=== PATIENT | female | born 1955 | race Caucasian/White ===

== ENCOUNTER 2019-04-01 10:23 | Observation (INO) ==
[2019-03-21 12:02] LABS: Basophils # (auto) 0.05 K/uL (0-0.2); Basophils % (auto) 0.5 %; Eosinophils # (auto) 0.05 K/uL (0-0.5); Eosinophils % (auto) 0.5 %; Hemoglobin 16.6 g/dL (12.0-16.0); Immature Granulocytes # (auto) 0.03 K/uL (0.00-0.02); Immature Granulocytes % (auto) 0.3 %; Lymphocytes # (auto) 2.74 K/uL (1.2-3.4); Lymphocytes % (auto) 28.9 %; Mean Corpuscular Hemoglobin 30.7 pg (25-34); Mean Corpuscular Hgb Conc 33.9 g/dL (32-36); Mean Corpuscular Volume 90.7 fL (80-100); Mean Platelet Volume 10.7 fL (7.4-10.4); Monocytes # (auto) 0.57 K/uL (0.11-0.59); Neutrophils # (auto) 6.04 K/uL (1.4-6.5); Neutrophils % (auto) 63.8 %; Platelet Count 301 K/uL (130-400); RDW Coefficient of Variation 14.5 % (11.5-14.5); RDW Standard Deviation 48.5 fL (36.4-46.3); White Blood Count 9.48 K/uL (4.8-10.8)
[2019-03-21 12:15] LABS: Appearance Urine Clear (Clear); Bacteria Urine Automated 2+ (Negative); Bilirubin Urine Negative (Negative); Blood Urine Trace (Negative); Color Urine Yellow; Epithelial Cell Urine Auto >30 /lpf (0-5); Glucose Urine UA Negative (Negative); Ketones Urine Negative (Negative); Leukocyte Esterase Urine 2+ (Negative); Nitrite Urine Negative (Negative); Protein Urine Negative (Negative); Specific Gravity Urine 1.019 (1.000-1.030); Urobilinogen Urine Negative (Negative); pH Urine 6.5 (4.5-7.5)
[2019-03-21 13:05] LABS: RBC Urine Automated 0-4 /hpf (0-4)
--- NOTE | 2019-03-24 14:20 | Anesthesiology Consultation ---
Date of Service March 24, 2019 Assessment & Plan (1) Encounter for pre-operative examination: Chart Review Chart Review: Acceptable Risk for Surgery and Patient NOT seen in Pre Admission Testing History Surgery Operation Date: 04/01/19 09:30 Proposed Procedures p Right Foot Triple Ankle Arthrodesis, - Crow Alonso DO s Percutaneous Tendon Achilles Lengthening, Repair Peroneus Brevis Tendon, Application of Platelet Rich Plasma - Crow Alonso DO Height/Weight Height: 5 ft Weight: 77.111 kg Allergies Allergy/AdvReac Type Severity Reaction Status Date / Time No Known Allergies Allergy Unverified 03/24/19 11:19 Medications Home Medications Medication Instructions Recorded Confirmed Last Taken No Known Home Medications 11/11/18 03/24/19 Unknown Past Medical History Medical History Obesity Pes planus Past Family History Family History Brother Family history of diabetes mellitus Mother Family history of diabetes mellitus Other No family history of adverse response to anesthesia Past Surgical History Surgical History History of colonoscopy History of tooth extraction Social History Smoking Status: Current every day smoker tobacco type: cigarettes Smoking cigarettes per day: 1-2 CIG PER DAY Do You Dip or Chew Tobacco: No Hx Alcohol Use: No Hx Substance Use: No substance use type: does not use Testing Laboratory Results 03/21/19 09:58 Urine Color Yellow 03/21/19 09:58 Urine Appearance Clear (Clear) 03/21/19 09:58 Urine pH 6.5 (4.5-7.5) 03/21/19 09:58 Ur Specific [place] 1.019 (1.000-1.030) 03/21/19 09:58 Urine Protein Negative (Negative) 03/21/19 09:58 Urine Glucose (UA) Negative (Negative) 03/21/19 09:58 Urine Ketones Negative (Negative) 03/21/19 09:58 Urine Nitrite Negative (Negative) 03/21/19 09:58 Ur Leukocyte Esterase 2+ (Negative) H 03/21/19 09:58 Urine WBC (Auto) 1-5 /hpf (0-5) 03/21/19 09:58 Urine RBC (Auto) 0-4 /hpf (0-4) 03/21/19 09:58 U Hyaline Cast (Auto) 1-5 /lpf (0-5) 03/21/19 09:58 U Epithel Cells (Auto) >30 /lpf (0-5) H 03/21/19 09:58 Urine Bacteria (Auto) 2+ (Negative) H 03/21/19 09:58 *Surgeon office made aware of abnormal UA* Electrocardiogram Date: 03/21/19 SR with PAC's at 70bpm. LAD. Chest X-Ray Date: 03/21/19 There is mild bibasilar atelectasis. The lungs and pleural spaces are otherwise clear. There is no pneumothorax. The skeletal structures are osteopenic. The bony thorax appears intact. Degenerative change and scoliosis are noted in the thoracic spine. IMPRESSION: No active disease in the chest.
--- NOTE | 2019-03-30 18:38 | History & Physical Report ---
Date of Service March 30, 2019 Assessment & Plan (1) Rupture of right posterior tibialis tendon: Schedule a right foot triple arthrodesis, percutaneous tendoachilles lengthening, repair peroneus brevis tendon tear, application PRP for 04.01.2019. All potential risks, benefits, complications, alternatives, and rehab have been discussed with the patient and she wishes to proceed. Plan for ASA 81 mg BID x 6 wks for DVT prophylaxis. (2) Osteoarthritis of right foot: (3) Achilles tendon contracture, right: (4) Tear of peroneal tendon: History of Present Illness Chief Complaint: right ankle pain Primary Care Provider: Jeremias Acharya MD This is a patient who rolled her right ankle in November of 2018. She had persistent medial ankle pain and worsening flat foot deformity. She was seen in the [facility] office and an MRI was ordered. She was noted to have a PTT rupture, hindfoot DJD, and a peroneal tendon tear. She is now being set up for surgical management. Allergies Allergy/AdvReac Type Severity Reaction Status Date / Time No Known Allergies Allergy Unverified 03/24/19 11:19 Home Medications Home Medications Medication Instructions Recorded Confirmed Type No Known Home Medications 11/11/18 03/24/19 History Past Med/Surg History Medical History Obesity Pes planus Surgical History History of colonoscopy History of tooth extraction Family History Brother Family history of diabetes mellitus Mother Family history of diabetes mellitus Other No family history of adverse response to anesthesia Social History Preferred Language: Maori Communication Ability: Effective Stick Welder Required: No Beliefs That Will Affect Care: None marital status: Current Living Situation: Family Feels Safe at Home: Yes Smoking Status: Current every day smoker Tobacco Type: cigarettes ; Cigarettes Per Day: 1-2 CIG PER DAY ; Second Hand Exposure: No ; Hx Alcohol Use: No Hx Substance Use: No Physical Exam Constitutional: well developed and well nourished; no acute distress ENMT: external ear and nose normal, oropharynx normal Neck: trachea midline, no thyromegaly Respiratory: normal respiratory effort, lungs clear to auscultation Cardiovascular: Rate/Rhythm: regular rate and regular rhythm Gastrointestinal (Abdomen): normal bowel sounds, soft, nontender, no hepatosplenomegaly Musculoskeletal: Gait: + antalgic gait (right) Shoulder: + joint line tenderness (Right posterior tibialis tendon, sinus tarsi, peroneal tendons) Ankle: + ankle abnormal to inspection (right pes planus), + limited ROM of ankle (right dorsiflexion and active inversion) and + joint line tenderness (Right posterior tibialis tendon, sinus tarsi, peroneal tendons); no skin erythema and no ecchymosis Skin: no rashes, warm and dry Neurologic: normal touch/pain/proprioception Psychiatric: A+Ox3, euthymic affect Lymphatic: no cervical or axillary lymphadenopathy
[~2019-04-01 10:23] MED LIST: BUPIVACAINE 0.5 % 5 MG/1 ML PF 10ML VIAL ONE; CEFAZOLIN 1000MG 1,000 MG/7.5 ML SYR IV SCH; CEFAZOLIN 2000MG 2,000 MG/15 ML SYR IV SCH; EPINEPHrine INJ 1 MG/ML AMP ONE; LIDOCAINE HCL 2% 2 ML VIAL/AMP(20MG/ML) INFIL ONE; LR 15ML/HR IV SCH; MIDAZOLAM HCL 1 MG/ML 2ML VIAL ONE; PROPOFOL IV EMULSION 10 MG/ML 20 ML VIAL IV ONE; ROPIVACAINE 0.5% 5 MG/ML 30 ML VIAL ONE; fentaNYL citrate 100 MCG/2 ML VIAL ONE
--- NOTE | 2019-04-01 10:56 | History & Physical Bridge Note ---
Date of Service April 01, 2019 History & Physical Bridge Note I have examined the patient, reviewed the History & Physical and in the interval since the performance of the History & Physical I have noted the following changes of clinical significance: no changes noted
[2019-04-01] MEDS ORDERED: BACITRACIN INJ 50,000 UNIT VIAL ONE (11:09)
[2019-04-01] MEDS ORDERED: ONDANSETRON INJ 2 MG/ML 2 ML VIAL IV PRN ×3 (11:16→17:23)
[2019-04-01] MEDS ORDERED: ATROPINE SULFATE 0.1 MG/ML 10ML SYR IV PRN ×2 (11:16→11:29)
[2019-04-01] MEDS ORDERED: fentaNYL citrate 100 MCG/2 ML VIAL IV PRN ×2 (11:16→11:29)
[2019-04-01] MEDS ORDERED: ePHEDrine sulfate 50 MG/ML AMP IV PRN ×2 (11:16→11:29)
[2019-04-01] MEDS ORDERED: HYDROmorphone INJ 1 MG/ML SYRINGE IV PRN ×2 (11:16→11:29)
[2019-04-01] MEDS ORDERED: CIPROFLOXACIN 400 MG/200 ML BAG IV STA (11:26)
[2019-04-01] MEDS ORDERED: ALBUT/IPRATROP 3MG/0.5MG NEB 3 ML VIAL NEB STA (11:30)
[2019-04-01] MEDS ORDERED: CIPROFLOXACIN 400MG / 200ML D5W IV ONE (11:33)
[2019-04-01] MEDS ORDERED: CALCIUM CHLORIDE 10% 10 ML SYR IV ONE (11:38)
[2019-04-01] MEDS ORDERED: THROMBIN 5000 UNITS KIT ONE ×2 (11:38→13:08)
[2019-04-01] MEDS ORDERED: ePHEDrine sulfate 50 MG/ML SYR ONE (13:00)
[2019-04-01] MEDS ORDERED: PHENYLEPHRINE HCL 10 MG/ML VIAL ONE (13:00)
[2019-04-01] MEDS ORDERED: DEXAMETHASONE SOD INJ 4 MG/ML VIAL ONE (13:00)
[2019-04-01] MEDS ORDERED: ONDANSETRON INJ 2 MG/ML 2 ML VIAL ONE (13:00)
[2019-04-01] MEDS ORDERED: fentaNYL citrate 100 MCG/2 ML VIAL ONE ×2 (13:06→14:24)
[2019-04-01] MEDS ORDERED: KETAMINE HCL INJ 50 MG/ML 10 ML VIAL ONE (13:59)
[2019-04-01] MEDS ORDERED: ESMOLOL HCL INJ 10 MG/ML 10ML VIAL IV ONE ×2 (14:10→14:23)
--- NOTE | 2019-04-01 15:52 | Fluoroscopy Report ---
FL foot RT 2V HISTORY: 63 years-old Female RT FOOT chronic right foot pain COMPARISON: Right ankle radiographs 11/11/2018 TECHNIQUE: 2 spot fluoroscopic images of the right hindfoot were obtained utilizing 12.1 seconds fluo roscopy time FINDINGS: There are 4 cannulated screws of the hindfoot with fixation of the talocalcaneal, cuboid calcaneal an d talonavicular articulations. Satisfactory alignment. The hardware appears intact. Expected postsurg ical soft tissue swelling and deep tissue air. Posterior skin betsey are noted. Tibiotalar osteoarth ritis redemonstrated. IMPRESSION: Fluoroscopic assistance as above. Please see operative report for further details. ACT 112: Negative or not required by law. The above report was generated using voice recognition software. It may contain grammatical, syntax o r spelling errors. Electronically signed by: Senthil Suh M.D. 04/01/2019 3:51 PM
--- NOTE | 2019-04-01 15:54 | Post Operative Brief Note ---
Immediate Post Op Note v1 Date of Surgery April 01, 2019 Pre & Post Diagnosis Operation Date: 04/01/19 12:40 Pre-Op Diagnosis: Hindfoot degenerative joint disease right, posterior tibial tendon dysfunction grade 3, right painful flat Foot, peroneal Tenosynovitis, Achilles contracture Post-Op Diagnosis: Hindfoot degenerative joint disease right, posterior tibial tendon dysfunction grade 3, right painful flat Foot, peroneal Tenosynovitis, Achilles contracture, accessory navicular I identified the patient and participated in the time-out.: Yes Procedure Operation Date: 04/01/19 12:40 Actual Procedures p Right Foot Triple Ankle Arthrodesis with autograft and allograft, Percutaneous Achilles Tendon Lengthening, Tenosynovectomy of Peroneus Brevis and Peroneus Longus Tendons, Excision of Accessory Navicular, Application of Platelet Rich Plasma concentrate (Right) - Crow Alonso DO Surgeon Crow Alonso DO Coding Specialist Home Health Sanjay Lam PA-C Estimated Blood Loss 10 Findings Consistent with Post-Op Diagnosis Specimens None Anesthesia Type General Regional Complications none Disposition Accompanied Patient To Recovery: No Disposition: Recovery Room Overlapping Procedure I was present for: the critical portions of procedure. I was immediately available: during the entire case.
--- NOTE | 2019-04-01 16:19 | Operative Report ---
DATE OF OPERATION: 04/01/2019 PREOPERATIVE DIAGNOSES: 1. Right hindfoot degenerative joint disease. 2. Posterior tibial tendon dysfunction grade 3. 3. Achilles tendon contracture. POSTOPERATIVE DIAGNOSES: 1. Right hindfoot degenerative joint disease. 2. Posterior tibial tendon dysfunction grade 3. 3. Achilles tendon contracture. 4. Peroneal tenosynovitis. 5. Accessory navicular. PROCEDURES: 1. Right triple arthrodesis with application autograft and allograft. 2. Percutaneous tendo Achilles lengthening. 3. Tenosynovectomy of the peroneus longus and peroneus brevis. 4. Resection of accessory navicular. 5. Application of platelet rich plasma concentrate. SURGEON: Crow Alonso DO. CABLE TV INSTALLER: Sanjay Lam PA-C who was present for patient positioning,sterile prep and drape, management of retractors and instruments. He was present through the critical portions of the case including wound closure, application of sterile dressing and transport of the patient to recovery. ANESTHESIA: General LMA with popliteal block. SPECIMENS: None. DRAINS: None. COMPLICATIONS: None. BLOOD LOSS: 10 mL PERTINENT HISTORY: This is a 63-year-old woman who has had chronic progressive and worsening posterior tibial tendon dysfunction grade 3 with worsening deformity and pain of the foot. She attempted and failed conservative management including use of a brace, use of walking boot, anti-inflammatories, rest, use of crutches, use of a cane, and modification of work and home activities. Radiographs and other advanced imaging demonstrate posterior tibial tendon dysfunction grade 3 with thickened posterior tibial tendon, severe valgus hindfoot with pes planus, degenerative arthropathy of the hindfoot with an Achilles tendon contracture and inflammation of the peroneal tendon suggesting tear. The patient was scheduled for surgery as indicated. All potential risks, benefits, complications, alternatives, rehab, potential for incomplete relief of symptoms, need for further surgery, DVT, PE, , persistent pain, swelling, scarring, weakness, neurovascular injury, wound complications, hardware failure, nonunion, malunion and bone fracture were discussed with the patient. The patient decided to proceed with the procedure as indicated. OPERATION AND FINDINGS: Triple arthrodesis with percutaneous tendon Achilles lengthening. DESCRIPTION OF PROCEDURE: The patient was taken to the Operating Suite, placed supine on the Operating Room table, after consent and identification of the proper operative site, the patient was anesthetized. LMA was placed. Tourniquet was placed high on the left lower extremity. Right lower extremity was then sterilely prepped and draped in the usual fashion. Exsanguinated with an Esmarch bandage and tourniquet inflated to 350 mmHg. Next, the foot was held in dorsiflexion and a three-part percutaneous incision was made with an 11-blade scalpel to lengthen the Achilles tendon using standard technique. Next, the stab incisions were then closed using interrupted skin betsey. Next, the 15-blade scalpel was used to make an incision from the distal aspect of the fibula to the base of the fourth metatarsal. The incision was deepened through subcutaneous tissue and meticulous hemostasis was obtained with electrocautery. Subcutaneous nerves were identified, retracted and protected. The extensor digitorum brevis was identified and was sharply elevated from the anterior process of the calcaneus revealing the sinus tarsi. Next, the sinus tarsi was debrided carefully with a rongeur and 15-blade scalpel. A cervical lamina legal operations manager was placed in the sinus tarsi opening the subtalar joint. Subtalar joint was then prepared with the use of a curette and rongeur to resect the articular surfaces down to subchondral bleeding bone. Irrigation was performed with sterile normal saline and then 2-mm drill bit was used to further prepare the joint surface with multiple drill holes in both surfaces of the subtalar joint and a small osteotome and mallet were used to fish scale the joint surfaces to increase surface area and bleeding. Next, the calcaneocuboid joint was then entered with the 15-blade scalpel, debrided of soft tissue and then a lamina legal operations manager was placed in the joint opening it for preparation with a curette and rongeur to remove any articular surface down to subchondral bleeding bone. Next, the 2-mm drill bit was used to further prepare the joint with multiple drill holes into the joint and then a small osteotome and mallet were used to fish scale the joint. The peroneal tendon sheath was then incised with a 15 blade scalpel. The peroneus longus and peroneus brevis were both completely covered with hypertrophic tenosynovium. Shandra synovectomy was performed with tenotomy scissors and forceps. There was noted to be no tears of the Peroneus brevis or peroneus longus tendons. The tendons were irrigated With sterile normal saline until clear. The tendon sheath was closed with a running 2-0 Vicryl suture. There was no subluxation of the tendons. Platelet rich plasma concentrate was created after centrifugation of 50 cc of venous blood harvested from the patient. Next, the 15-blade was used to make an incision from the distal aspect of the tibia to the base of the naviculocuneiform joint. The incision was deepened through subcutaneous tissue. Meticulous hemostasis obtained with electrocautery. A Weitlaner retractor was placed in the wound. The greater saphenous vein was identified, retracted and protected. The capsule of the talonavicular joint was then entered sharply with a 15-blade scalpel and elevated both superior and inferiorly. A small Sena was placed on the neck of the talus and further soft tissue elevation was performed with the 15-blade scalpel until the talonavicular joint was clearly visualized. The articular surface was then debrided with curette and rongeur and a cervical lamina legal operations manager was placed in the joint. Next, it was irrigated with sterile normal saline and a 2-mm drill bit was used to make multiple holes in the joint surfaces and fish scaling was performed with a small osteotome and mallet. The large Accessory navicular was then sharply excised using a 15 blade scalpel. Next, the medial and lateral hindfoot incisions were irrigated with sterile normal saline and the joint surfaces were then aligned appropriately based on alignment of the lower extremity and the kneecap. The subtalar joint was aligned and then a 7.3-mm cannulated guidepin was driven from the superior aspect of the talus across the subtalar joint into the calcaneus under fluoroscopic control. Next, an appropriate length 7.3-mm short-thread screw was placed under fluoroscopic control and countersunk slightly. Next, the guidepin was removed. Next, A 2.25 mm guidepin was used to stabilize the talonavicular joint in appropriate alignment and then the calcaneocuboid joint was then stabilized with appropriate alignment under fluoroscopic control. Next, appropriate length 7.3 mm short-thread cannulated screw was placed across the talonavicular and calcaneocuboid joints respectively under fluoroscopic control. All guidepins were removed. Wounds were irrigated with sterile normal saline and a combination of autograft and allograft bone graft was then packed in and around the subtalar, talonavicular and calcaneocuboid joints which was comprised of autograft and 30 cc of cancellous bone chips. Platelet rich plasma concentrate was then injected into all fusion sites and Throughout the soft tissues. The extensor digitorum brevis then closed back to its origin with interrupted 2- 0 Vicryl sutures. The talonavicular joint capsule was closed using 2-0 Vicryl sutures. The dermis was closed using buried interrupted 3-0 Vicryl sutures medially and laterally and then skin incisions were closed using 4-0 Nylon sutures. A sterile compressive dressing and bulky Max-Diaz plaster splint was applied, overwrapped with an Miller wrap. The tourniquet was released. DISPOSITION: Patient awakened and taken to Recovery in stable condition. I attest to the content of the Intraoperative Record and any orders documented therein. Any exceptions are noted below. JUAN CARLOS
--- NOTE | 2019-04-01 16:42 | Anesthesiology Progress Note ---
Date of Service April 01, 2019 Anesthesia Post Procedure Vital Signs Vital Signs: Temp Pulse Pulse Resp BP Pulse Ox 04/01/19 16:30 79 16 148/77 H 94 04/01/19 16:20 36.6 C 84 18 158/99 H 94 04/01/19 16:10 88 17 137/96 95 04/01/19 16:00 88 18 123/86 94 04/01/19 15:50 36.6 C 87 28 H 137/81 93 04/01/19 11:39 70 14 91 04/01/19 10:58 37 C 86 18 143/91 H 96 Pain Intensity Right Foot: Pain Intensity: 4 Transfer of Care Handoff Completed per policy Notes Mental Status: alert / awake / arousable and participated in evaluation Patient Amnestic to Procedure: Yes Nausea / Vomiting: adequately controlled Pain: adequately controlled Airway Patency, RR, SpO2: stable & adequate BP & HR: stable & adequate Hydration State: stable & adequate Anesthetic Complications: no major complications apparent and Pt Satisfied with anesthetic care
[2019-04-01] MEDS ORDERED: bisacodyL 10 MG SUPP PR PRN (17:23)
[2019-04-01] MEDS ORDERED: OXYCODONE HCL IR 5 MG TAB (IMMEDIATE RELEASE) PO PRN (17:23)
[2019-04-01] MEDS ORDERED: HYDROmorphone INJ 0.5 MG/0.5 ML SYR IV PRN (17:23)
[2019-04-01] MEDS ORDERED: NALOXONE HCL 0.4 MG/1 ML VIAL/CARP IV PRN (17:23)
[2019-04-01] MEDS ORDERED: SODIUM CHLORIDE 0.9% 1000ML 1,000 ML IV SCH (17:23)
[2019-04-01] MEDS ORDERED: MAGNESIUM HYDROXIDE SUSP 30 ML UDC PO PRN (17:23)
[2019-04-01] MEDS: ACETAMINOPHEN 500 MG TAB PO SCH (18:46)
[2019-04-01] MEDS: ASPIRIN 81 MG ECTAB PO SCH (20:18)
[2019-04-01] MEDS: DOCUSATE SODIUM 100 MG CAP PO SCH (20:18)
[2019-04-01] MEDS: CEFAZOLIN 2000MG 2,000 MG/15 ML SYR IV SCH (20:18)
[2019-04-01] MEDS ORDERED: SENNA 8.6 MG TAB PO SCH (21:00)
[2019-04-02] MEDS: CEFAZOLIN 2000MG 2,000 MG/15 ML SYR IV SCH (03:03)
[2019-04-02] MEDS: ACETAMINOPHEN 500 MG TAB PO SCH ×2 (03:03→13:02)
[2019-04-02 06:19] LABS: Hematocrit (blood only) 37.7 % (37-47); Hemoglobin 12.5 g/dL (12.0-16.0); Mean Corpuscular Hemoglobin 30.2 pg (25-34); Mean Corpuscular Hgb Conc 33.2 g/dL (32-36); Mean Corpuscular Volume 91.1 fL (80-100); Mean Platelet Volume 10.4 fL (7.4-10.4); Platelet Count 240 K/uL (130-400); RDW Coefficient of Variation 14.7 % (11.5-14.5); RDW Standard Deviation 49.5 fL (36.4-46.3); Red Blood Count 4.14 M/uL (4.2-5.4); White Blood Count 10.72 K/uL (4.8-10.8)
[2019-04-02 06:56] LABS: Calcium 8.2 mg/dl (8.5-10.1); Creatinine Clr Calc Pharmacy 73.4 ml/min; Est GFR (African American) 101.6; Est GFR (Non-African American) 87.7; Potassium 3.7 mmol/L (3.5-5.1)
--- NOTE | 2019-04-02 08:16 | Orthopedic Progress Note ---
Date of Service April 02, 2019 Assessment & Plan (1) Osteoarthritis of right foot: POD#1 Right Foot Triple Ankle Arthrodesis, Percutaneous Achilles Tendon Lengthening, Tenosinovectomy of Peroneus Brevis and Peroneus Longus Tendons, Excision of Accessory Navicular, Application of Platelet Rich Plasma -DVT prophylaxis-ASA 81mg BID -NWB RLE. -Pain management -AM labs-hemoglobin 12.5 from 16.6 preop. Acute blood loss anemia likely due to surgical loss vs dilutional effect -D/C planning-home later today. Subjective POD# right foot surgery. Having some pain this morning but controlled. No other complaints. Denies chest pain, sob, dizziness. Would like to go home today. Review of Systems Review of Systems: All systems reviewed & are unremarkable except as noted in HPI & below Physical Exam Physical Exam: Dressing/splint is c/d/i. Toes mobile. Distally n/v status inta ct. Sensation starting to return. No calf tenderness. Results & Data Vital Signs (Past 12 Hours) Vital Signs Temp Pulse Resp BP Pulse Ox 04/02/19 03:10 36.6 C 79 16 117/74 97 Laboratory Results H & H 03/21/19 04/02/19 Range/Units 09:58 05:52 Hgb 16.6 H 12.5 (12.0-16.0) g/dL Hct 49.0 H 37.7 (37-47) %
[2019-04-02] MEDS: ASPIRIN 81 MG ECTAB PO SCH (08:43)
[2019-04-02] MEDS: DOCUSATE SODIUM 100 MG CAP PO SCH (08:44)
[2019-04-02] MEDS ORDERED: MULTIVITAMIN TAB PO SCH (09:00)
--- NOTE | 2019-04-02 14:30 | Anesthesiology Progress Note ---
Date of Service April 02, 2019 Anesthesia Post Procedure Vital Signs Vital Signs: Temp Pulse Pulse Resp BP Pulse Ox 04/02/19 12:00 37.1 C 80 16 149/75 H 98 04/02/19 08:00 37.1 C 65 16 129/76 95 04/02/19 03:10 36.6 C 79 16 117/74 97 04/01/19 20:07 36.9 C 79 18 126/78 96 04/01/19 19:13 36.9 C 81 18 128/77 95 04/01/19 18:05 36.8 C 74 18 135/84 93 04/01/19 17:36 37.1 C 86 16 147/91 H 96 04/01/19 17:05 36.4 C L 75 16 148/85 H 97 04/01/19 17:00 78 17 140/81 93 04/01/19 16:50 36.6 C 78 17 148/86 H 94 04/01/19 16:40 83 17 143/87 H 93 04/01/19 16:30 79 16 148/77 H 94 04/01/19 16:20 36.6 C 84 18 158/99 H 94 04/01/19 16:10 88 17 137/96 95 04/01/19 16:00 88 18 123/86 94 04/01/19 15:50 36.6 C 87 28 H 137/81 93 Pain Intensity Right Foot: Pain Intensity: 5 Notes Mental Status: alert / awake / arousable and participated in evaluation Patient Amnestic to Procedure: Yes Nausea / Vomiting: adequately controlled Pain: adequately controlled Airway Patency, RR, SpO2: stable & adequate BP & HR: stable & adequate Hydration State: stable & adequate Anesthetic Complications: no major complications apparent
--- NOTE | 2019-04-05 14:28 | Discharge Summary ---
Date of Service April 05, 2019 Admission HPI Per Admitting Provider This is a patient who rolled her right ankle in November of 2018. She had persistent medial ankle pain and worsening flat foot deformity. She was seen in the [facility] office and an MRI was ordered. She was noted to have a PTT rupture, hindfoot DJD, and a peroneal tendon tear. She is now being set up for surgical management. Admission Exam Per Admitting Provider Constitutional: well developed and well nourished; no acute distress ENMT: external ear and nose normal, oropharynx normal Neck: trachea midline, no thyromegaly Respiratory: normal respiratory effort, lungs clear to auscultation Cardiovascular: Rate/Rhythm: regular rate and regular rhythm Gastrointestinal (Abdomen): normal bowel sounds, soft, nontender, no hepatosplenomegaly Musculoskeletal: Gait: + antalgic gait (right) Shoulder: + joint line tenderness (Right posterior tibialis tendon, sinus tarsi, peroneal tendons) Ankle: + ankle abnormal to inspection (right pes planus), + limited ROM of ankle (right dorsiflexion and active inversion) and + joint line tenderness (Right posterior tibialis tendon, sinus tarsi, peroneal tendons); no skin erythema and no ecchymosis Skin: no rashes, warm and dry Neurologic: normal touch/pain/proprioception Psychiatric: A+Ox3, euthymic affect Lymphatic: no cervical or axillary lymphadenopathy Principal Diagnosis 1. Right hindfoot degenerative joint disease. 2. Posterior tibial tendon dysfunction grade 3. 3. Achilles tendon contracture. 4. Peroneal tenosynovitis. 5. Accessory navicular. Discharge Data Allergies Allergy/AdvReac Type Severity Reaction Status Date / Time No Known Allergies Allergy Verified 04/01/19 11:04 Consultations 04/01/19 17:23 Consult Case Management - Discharge Planning Routine Procedures Performed Operation Date: 04/01/19 12:40 Actual Procedures p Right Foot Triple Ankle Arthrodesis, Percutaneous Achilles Tendon Lengthening, Tenosinovectomy of Peroneus Brevis and Peroneus Longus Tendons, Excision of Accessory Navicular, Application of Platelet Rich Plasma(Right) - Crow Covarrubias Ba rter, DO Ordered Studies 04/01/19 11:15 US - OR guided needle placemen Routine 04/01/19 12:40 FL fluoroscopy <1hr Routine FL foot RT 2V Routine Hospital Course (1) Osteoarthritis of right foot: Subjective POD#1 right foot surgery. Having some pain this morning but controlled. No other complaints. Denies chest pain, sob, dizziness. Would like to go home today. Review of Systems Review of Systems: All systems reviewed & are unremarkable except as noted in HPI & below Physical Exam Physical Exam: Dressing/splint is c/d/i. Toes mobile. Distally n/v status intact. Sensation starting to return. No calf tenderness. Results & Data Vital Signs (Past 12 Hours) Vital Signs Temp Pulse Resp BP Pulse Ox 04/02/19 03:10 36.6 C 79 16 117/74 97 POD#1 Right Foot Triple Ankle Arthrodesis, Percutaneous Achilles Tendon Lengthening, Tenosinovectomy of Peroneus Brevis and Peroneus Longus Tendons, Excision of Accessory Navicular, Application of Platelet Rich Plasma -DVT prophylaxis-ASA 81mg BID -NWB RLE. -Pain management -AM labs-hemoglobin 12.5 from 16.6 preop. Acute blood loss anemia likely due to surgical loss vs dilutional effect -D/C planning-home later today. Total Time Total Time Spent Total Time Spent (In Minutes): 5 Discharge Plan Discharge Items Patient Disposition: Home - Home Health Services Reason For Visit: Flat Foot, Right Foot, Strain of Other Muscles Discharge Diagnosis: Right foot OA, flat foot Activity: Per Instructions section Non-emergency contact: Surgeon Call non-emergency contact if: you have any medication questions, your pain is not controlled, your pain is worsening, your pain is concerning for you, you have a fever, your temperature is above 101, your wound has increased redness and your wound has increased drainage Follow-up/Referrals: Jeremias Acharya MD [Primary Care Provider] - Diet: Regular Addtl Attending Provider Instructions: ACTIVITY RECOMMENDATIONS: Limitations: No weight bearing to affected limb at all times. SPECIAL CARE INSTRUCTIONS: * Some drainage onto the dressing is normal and is no cause for alarm. * Some swelling is natural especially after walking. * When resting, keep your foot elevated above the level of your heart. * Call [facility] if you notice: -Increased drainage -Fever over 101 degrees F -Severe constant pain BANDAGE: * Leave bandage/cast in place unless otherwise directed. * Keep bandage/cast dry at all times. FOLLOW UP VISIT WITH DR. ALONSO If appointment is not already scheduled: Please call [facility] after you get home today to schedule a follow-up appointment for [address] Alonso at . Pending Studies at Discharge: No Stand-Alone Forms: [facility], Opioid Pain Management, Smoking Cessation Medications and DC Order Prescriptions: New aspirin [Ecotrin Low Strength] 81 mg Tablet,Delayed Release (Dr/Ec) 81 mg PO BID Qty: 60 RF: 0 oxycodone-acetaminophen [Percocet] 5-325 mg tablet 1 - 2 tab PO .Q4H-6H MDD 6 PRN (Reason: pain) Qty: 30 RF: 0 Discharge Orders: Discharge Order (Routine); Ordered 04/02/19 Ordered By: Jitendra Wilson/Other Patient Handouts: Surgery Prevent DVT After Admission Data Admit Date/Time: 04/01/19 16:10 Attending Provider: Crow Alonso Admit Provider: Crow Alonso Primary Care Provider: Jeremias Acharya Other Providers: Joleen Wright ; Connie Hylton Other Interventions: Discharge Summary Assessment (RN) Last Done: 04/02/19 12:42 DC Date/Time DO NOT enter until pt leaves facility: 04/02/19 14:12
== END 2019-04-02 14:12 | disposition home health service (06) ==
LOC: ASU 10:23 → 3E 16:10 → INTOOBSV 16:10